=== PATIENT | female | born 2000 | race Caucasian/White ===

== ENCOUNTER 2021-01-19 12:24 | Emergency (ER) | payer OTHER ==
[2021-01-19 13:39] VITALS: BMI 30.1
[2021-01-19] MEDS ORDERED: SODIUM CHLORIDE 1,000 ML IV STA (14:03)
[2021-01-19] MEDS ORDERED: KETOROLAC TROMETHAMINE 30 MG/1 ML VIAL IVPUSH ONE (14:03)
[2021-01-19] MEDS ORDERED: ONDANSETRON 4 MG/2 ML VIAL IVPUSH ONE (14:03)
[2021-01-19 15:34] LABS: PH,URINE 8.5 (5.0-8.0); URINE APPEARANCE TURBID; URINE BILIRUBIN NEGATIVE (NEGATIVE); URINE COLOR YELLOW; URINE GLUCOSE (UA) NEGATIVE (NEGATIVE); URINE KETONE NEGATIVE (NEGATIVE); URINE LEUK ESTERASE NEGATIVE (NEGATIVE); URINE NITRITE NEGATIVE (NEGATIVE); URINE PROTEIN NEGATIVE (NEGATIVE); URINE UROBILINOGEN 0.2 mg/dL (0.2-1.0)
[2021-01-19] MEDS ORDERED: KETOROLAC TROMETHAMINE 30 MG/1 ML VIAL ONE (15:34)
[2021-01-19] MEDS ORDERED: ONDANSETRON 4 MG/2 ML VIAL ONE (15:34)
[2021-01-19 15:58] LABS: HCG,QUALITATIVE URINE NEGATIVE
[2021-01-19 17:21] VITALS: BP 117/81; PULSE 81; TEMP 98.4
== END 2021-01-19 17:21 | disposition home or self-care (01) ==
LOC: JER 12:24
PROC: 3E0333Z Introduction of Anti-inflammatory into Peripheral Vein, Percutaneous Approach (ICD-10-PCS; principal; 2021-01-19)
PROC: 3E033GC Introduction of Other Therapeutic Substance into Peripheral Vein, Percutaneous Approach (ICD-10-PCS; 2021-01-19)
PROC: 3E0337Z Introduction of Electrolytic and Water Balance Substance into Peripheral Vein, Percutaneous Approach (ICD-10-PCS; 2021-01-19)
DX: G43.909 Migraine, unspecified, not intractable, without status migrainosus (principal)
CPT/HCPCS: 70450-TC; 81003; 84703; 96361; 96374; 96375; 99284-25

== ENCOUNTER 2021-05-26 23:16 | Emergency (ER) | payer OTHER ==
[2021-05-26 23:38] VITALS: TEMP 99.1; BMI 28.0
[2021-05-27 03:31] LABS: BASO % 0.4 % (0-2.0); EOS % 1.1 % (0-4.5); HEMATOCRIT 39.2 % (32.4-45.2); HEMOGLOBIN 13.1 GM/dL (10.7-15.3); LYMPH % 23.4 % (8-40); MCH 28.4 pg (25.7-33.7); MCHC 33.5 g/dl (32.0-36.0); MEAN CELL VOLUME 84.8 fl (80-96); MONO % 6.3 % (3.8-10.2); NEUT % 68.8 % (42.8-82.8); PLATELET COUNT 325 10^3/uL (134-434); RBC 4.62 M/mm3 (3.60-5.2); RDW 13.4 % (11.6-15.6); WHITE BLOOD COUNT 11.2 K/mm3 (4.0-10.0)
[2021-05-27 03:41] LABS: PROTHROMBIN TIME (PATIENT) 12.3 SEC (9.7-13.0)
[2021-05-27 03:52] LABS: CALCIUM 9.2 mg/dL (8.5-10.1)
[2021-05-27 03:54] LABS: ALBUMIN 4.5 g/dl (3.4-5.0); BLOOD UREA NITROGEN 12.9 mg/dL (7-18)
[2021-05-27 03:57] LABS: CREATININE 0.8 mg/dL (0.55-1.3)
[2021-05-27 03:58] LABS: BILIRUBIN,TOTAL 0.4 mg/dL (0.2-1); TOT PROT 8.1 g/dl (6.4-8.2)
[2021-05-27 05:32] VITALS: BP 120/74; PULSE 78
== END 2021-05-27 05:32 | disposition home or self-care (01) ==
LOC: JER 23:16
DX: O26.851 Spotting complicating pregnancy, first trimester (principal); Z3A.01 Less than 8 weeks gestation of pregnancy
CPT/HCPCS: 36415; 76817-TC; 80053; 84702; 85025; 85610; 86850; 86900; 86901; 99284-25

== ENCOUNTER 2021-10-16 09:05 | Emergency (ER) | payer OTHER ==
[2021-10-16 09:27] VITALS: BP 115/74; PULSE 87; TEMP 98.4; BMI 26.2
== END 2021-10-16 11:17 | disposition home or self-care (01) ==
LOC: JERFT 09:05
DX: R07.82 Intercostal pain (principal)
CPT/HCPCS: 71045-TC-FY; 99284-25